=== PATIENT | female | born 1960 | race African-American/Black ===

== ENCOUNTER 2017-04-28 11:29 | Emergency (ER) | payer MEDICAID, OTHER ==
[~2017-04-28] VITALS: Ht 162.6 cm; Wt 76.0 kg
[~2017-04-28 11:29] MED LIST: xanax
[2017-04-28] MEDS ORDERED: IBUPROFEN 600MG TABLET PO ONE (19:15)
[2017-04-28 20:15] VITALS: BP 163/95
== END 2017-04-28 20:15 | disposition home or self-care (01) ==
LOC: ER 17:00
DX: S92.514A Nondisplaced fracture of proximal phalanx of right lesser toe(s), initial encounter for closed fracture (principal); F17.200 Nicotine dependence, unspecified, uncomplicated; W31.89XA Contact with other specified machinery, initial encounter; Y93.89 Activity, other specified; Y92.89 Other specified places as the place of occurrence of the external cause; Y99.8 Other external cause status
CPT/HCPCS: 73630; 99284

== ENCOUNTER 2021-06-17 06:42 | Inpatient (IN) | payer MEDICARE, MEDICAID ==
[~2021-06-17] VITALS: Ht 160 cm; Wt 83.5 kg
[2021-06-17] MEDS ORDERED: ASPIRIN/SOD BICARB/CITRIC ACID 324MG TAB EFF ONE (07:27)
[2021-06-17] MEDS ORDERED: AMLO10TA80 PO (07:33)
[2021-06-17] MEDS ORDERED: ATOR-2 PO (07:33)
[2021-06-17] MEDS ORDERED: LISI40TA13 PO (07:33)
[2021-06-17] MEDS ORDERED: CLOP-31 PO (07:33)
[2021-06-17] MEDS ORDERED: ASPI-1497 PO (07:33)
[2021-06-17] MEDS ORDERED: FENTANYL CITRATE/PF 50MCG/ML 2ML VIAL ONE ×2 (08:00→08:59)
[2021-06-17] MEDS ORDERED: IODIXANOL 320MG/ML 100 ML BOTTLE IV ONE ×4 (08:01→11:05)
[2021-06-17] MEDS ORDERED: LIDOCAINE HCL 1% 10 MG/ML 10ML VIAL ONE ×2 (08:01→10:03)
[2021-06-17] MEDS ORDERED: MIDAZOLAM HCL 2 MG/2 ML VIAL ONE ×2 (08:01→08:59)
[2021-06-17] MEDS ORDERED: IOHEXOL-300 100 ML BOTTLE ONE ×2 (08:27→10:03)
[2021-06-17] MEDS ORDERED: NITROGLYCERIN 50MCG/ML 10ML VIAL (CATH LAB) IV ONE (09:35)
[2021-06-17] MEDS ORDERED: HEPARIN SODIUM 1,000 UNIT/1ML VIAL IV ONE (09:35)
[2021-06-17] MEDS ORDERED: PHENYLEPHRINE 100MCG/ML 10ML VIAL (CATH LAB) IV ONE (09:35)
[2021-06-17] MEDS ORDERED: NICARDIPINE 100MCG/ML 10ML VIAL (CATH LAB) IV ONE (09:35)
[2021-06-17] MEDS ORDERED: MORPHINE SULFATE 2 MG/ML CPJ (NOT FOR IM USE) IV PRN (10:00)
[2021-06-17] MEDS ORDERED: SODIUM CHLORIDE 0.45% 1,000 ML IV SCH (10:00)
[2021-06-17] MEDS ORDERED: ACETAMINOPHEN 325MG TABLET PO PRN (10:00)
[2021-06-17] MEDS ORDERED: ONDANSETRON HCL 4MG/2ML INJ IV PRN (10:00)
[2021-06-17] MEDS ORDERED: CLOPIDOGREL 75MG TABLET PO NR (10:00)
[2021-06-17] MEDS ORDERED: CLOPIDOGREL 75MG TABLET ONE (11:24)
[2021-06-17 12:00] VITALS: BP_SYST 122; BP_SYST 133; BP_DIAS 55; BP_DIAS 62
[2021-06-17 14:00] VITALS: BP 140/74
[2021-06-17 16:00] VITALS: BP 126/74
[2021-06-17 17:55] VITALS: BP 137/74
[2021-06-17] MEDS: AMLODIPINE 5MG TABLET PO SCH (18:13)
[2021-06-17 20:00] VITALS: BP 142/80
[2021-06-17 22:00] VITALS: BP 129/71
[2021-06-18] VITALS (8 sets, daily range): BP systolic 100–148; BP diastolic 54–80
[2021-06-18 07:14] LABS: HEMATOCRIT. 39.6 % (36.0-48.0); MEAN CORPUSCULAR HEMOGLOBIN 29.2 pg (28.0-32.0); MEAN PLATELET VOLUME 9.9 fl (7.4-10.4); PLATELET 244 x1000/uL (130-400); RED BLOOD CELL COUNT 4.45 mill/uL (4.2-5.4); RED CELL DISTRIBUTION WIDTH 13.8 % (11.6-14.6)
[2021-06-18 07:34] LABS: CHLORIDE 112 mEq/L (98-107)
[2021-06-18] MEDS: AMLODIPINE 5MG TABLET PO SCH (08:50)
[2021-06-18] MEDS ORDERED: ASPIRIN 81MG TABLET PO SCH (09:00)
[2021-06-18] MEDS ORDERED: CLOPIDOGREL 75MG TABLET PO SCH (09:00)
[2021-06-18] MEDS ORDERED: NALOXONE HCL 0.4MG/ML VIAL IV PRN (16:45)
[2021-06-18 17:51] LABS: PLATELET ESTIMATE NORMAL
== END 2021-06-18 11:50 | disposition home or self-care (01) | DRG 247 ==
LOC: CCL 06:42 → 3WST 06:43
PROVIDERS: ADMIT Specialist; ATTEND Specialist
PROC: 027034Z Dilation of Coronary Artery, One Artery with Drug-eluting Intraluminal Device, Percutaneous Approach (ICD-10-PCS; principal; 2021-06-17)
PROC: B2111ZZ Fluoroscopy of Multiple Coronary Arteries using Low Osmolar Contrast (ICD-10-PCS; 2021-06-17)
PROC: 4A023N7 Measurement of Cardiac Sampling and Pressure, Left Heart, Percutaneous Approach (ICD-10-PCS; 2021-06-17)
DX: I25.10 Atherosclerotic heart disease of native coronary artery without angina pectoris (principal); E78.5 Hyperlipidemia, unspecified; I10 Essential (primary) hypertension; Z86.73 Personal history of transient ischemic attack (TIA), and cerebral infarction without residual deficits; Z79.82 Long term (current) use of aspirin; Z79.899 Other long term (current) drug therapy; Z79.02 Long term (current) use of antithrombotics/antiplatelets
CPT/HCPCS: 36415; 80048; 84484; 85025; 85347; 92928; 93005; 93458; C1725; C1769; C1874; C1887; C1893; J1644; J2250; J2370; J3010; J3490; Q9967